=== PATIENT | female | born 1960 | race Caucasian/White ===

== ENCOUNTER 2025-02-07 14:09 | Outpatient (OUT) | payer OTHER, SELFPAY ==
--- NOTE | 2025-02-07 14:17 | CA_ITS ---
Patient Name: ESTEBAN LUIS MR#: [id number] : 1960 Exam Date: 02/07/2025 Ordering Doctor: DR KOKO MARIANO ECHOCARDIOGRAM REPORT PROCEDURE: CA ECHO DOPPLER COMPLETE INDICATIONS: Murmur, Lightheaded COMPARISON: None. DESCRIPTION: COMPLETE ECHOCARDIOGRAM Real-time transthoracic echocardiography with 2D, M-mode, spectral and color flow Doppler performed. QUALITY: Technical quality was good. LEFT VENTRICLE: Normal chamber size. Thickened septal wall. Mild concentric hypertrophy. Global left ventricular systolic function is normal. LV EF: Estimated left ventricular ejection fraction is 65%. DIASTOLIC: Grade 2 diastolic dysfunction. ATRIAL SEPTUM: LEFT ATRIUM: Mild dilatation. RIGHT ATRIUM: Normal chamber size. RIGHT VENTRICLE: Normal chamber size. Normal right ventricular systolic function. TRICUSPID VALVE: Normal mobility and thickness. No stenosis with trivial regurgitation. No evidence of pulmonary hypertension. RVSP 29 mmHg. MITRAL VALVE: Normal mobility and thickness. No evidence of mitral valve stenosis. Mild mitral annular calcification. Trivial mitral regurgitation. AORTIC VALVE: Normal trileaflet appearance. Mildly calcified aortic valve. Normal leaflet mobility. No evidence of aortic valve stenosis. Trivial aortic regurgitation. AORTIC ROOT: Mildly dilated, measuring 3.9 cm. The ascending aorta is normal in size and measures 3.6 cm. PULMONIC VALVE: Normal thickness and mobility. No stenosis. Trivial regurgitation. PERICARDIUM: No evidence of pericardial effusion. IVC: Collapses with inspiration. Mildly dilated measuring 2.3 cm. PLEURA: CONCLUSION: 1. Mild concentric left ventricular hypertrophy with normal systolic function. LVEF is estimated at 65%. 2. Normal right ventricular size and systolic function. 3. Grade 2 diastolic dysfunction. 4. No significant valvular dysfunction. 5. Normal right-sided pressures. Adult Echocardiography Procedure Report Left Ventricle LVEDD (3.7 - 5.6 cm): 5.30 cm LVESD (2.2 - 4.0 cm): 3.03 cm LVIVS thickness (0.6 - 1.2 cm): 1.66 cm LVPW thickness (0.5 - 1.0 cm): 1.06 cm e': 0.08 m/s E - e': 14.17 LVOT Max Gradient: 3.51 mm[Hg] LVOT Area (cm2): 0.94 m/s Peak Velocity (LVOT): 0.94 m/s Mean Velocity (LVOT): 0.63 m/s LVOT Diameter 2.10 cm Left Ventricular Ejection Fraction: 65 % Left Atrium LA Volume Index (2D A2C): 33.92 ml/m2 Left Atrium Systolic Dimension: 4.10 cm Mitral Valve MV E to A Ratio: 1.13 Mitral Valve A-Wave Peak Velocity: 0.97 m/s Mitral Valve E-Wave Peak Velocity: 1.09 m/s Right Ventricle RV Internal Diastolic Dimension: 4.59 cm Aorta AO Root Diam: 3.93 cm Ascending Ao Diam: 3.58 cm Aortic Valve AoV Area (Peak Zia): 2.32 cm2, 2.32 cm2 AoV Area (VTI): 2.29 cm2, 2.29 cm2 Peak Velocity(Antegrade Flow): 1.40 m/s Peak Gradient(Antegrade Flow): 7.85 mm[Hg] Mean Velocity(Antegrade Flow): 1.00 m/s Mean Gradient(Antegrade Flow): 4.52 mm[Hg] Velocity Time Integral: 39.33 cm Tricuspid Valve Peak Velocity (Regurgitant Flow): 2.03 m/s, 1.74 m/s, 2.30 m/s Pulmonic Valve Mean Gradient: 1.95 mm[Hg] Mean Velocity: 0.65 m/s Peak Velocity: 0.97 m/s, 1.01 m/s Peak Gradient: 4.08 mm[Hg], 3.74 mm[Hg] Right Atrium Right Atrium Systolic Pressure: 48.82 ml, 48.82 ml Dictated by: Benedict Edmond M.D. on 02/07/2025 at 20:11 Approved by: Benedict Edmond M.D. on 02/07/2025 at 20:18
== END 2025-02-07 14:10 | disposition home or self-care (01) ==
LOC: CARD 14:13
PROVIDERS: Family Provider Family Medicine; PCP Family Medicine; Visit Provider Family Medicine
DX: R01.1 Cardiac murmur, unspecified (principal); R42 Dizziness and giddiness
CPT/HCPCS: 93306